=== PATIENT | female | born 2000 | race Caucasian/White ===

== ENCOUNTER 2021-11-22 21:42 | Observation (INO) ==
[2021-11-22] MEDS ORDERED: ONDANSETRON INJ 2 MG/ML 2 ML VIAL IV STA (22:04)
[2021-11-22] MEDS ORDERED: MoRPHine SULFATE 4 MG/ML 1 ML CARP\\VIAL IV STA (22:04)
--- NOTE | 2021-11-22 22:09 | Emergency Department Note ---
History of Present Illness General Chief complaint: Flank Pain Stated complaint: R SIDE PAIN,NAUSEA Time Seen by Provider: 11/22/21 21:53 History of Present Illness Maximum Pain Intensity: 8 This is a 21-year-old female that presents to the emergency department via private vehicle with complaints of "right side pain, nausea". The patient notes a history of G6PD and sickle cell trait. She states that last evening she developed some minor right mid back discomfort. No known trauma or injury. She states that throughout the day this has seemed to increase. Over the past 90 minutes it has significantly increased. She also notes some right upper quadrant abdominal pain. She has associated nausea. No vomiting. No fevers. No chest pain. No shortness of breath. This has never happened before. No dysuria, hematuria or increased urinary frequency. He rates her current disco mfort at the present time as an 8/10. Home Medications Medication Instructions Recorded Confirmed Type aripiprazole 2 mg tablet 2 mg PO DAILY 11/23/21 11/23/21 History bupropion HCl 100 mg tablet,12 hr 100 mg PO DAILY 11/23/21 11/23/21 History sustained-release ibuprofen 200 mg tablet (Advil) 400 mg PO Q6H PRN 11/23/21 11/23/21 History norgestimate 0.18 mg/0.215 mg/0.25 1 tab PO DAILY 11/23/21 11/23/21 History mg-ethinyl estradiol 25 mcg tablet (Rkf-[id number]-Oaonkm) propranolol 10 mg tablet 10 mg PO DAILY PRN 11/23/21 11/23/21 History tretinoin 0.05 % topical cream 1 applic TOPICAL UD PRN 11/23/21 11/23/21 History Allergies Allergy/AdvReac Type Severity Reaction Status Date / Time Meds that interfere with AdvReac Unknown Uncoded 11/23/21 00:01 G6PD defic meds that interfere, sickle AdvReac Unknown Uncoded 11/23/21 00:01 cell Past Med/Surg History Medical History (Updated 11/23/21 @ 07:29 by Amadou Sanchez PA-C) G6PD deficiency Surgical History No pertinent past surgical history Social History Smoking Status: Current every day smoker Tobacco Type: E-cigarettes / Vaping Second Hand Exposure: Yes; Do You Dip or Chew Tobacco: No; Tobacco Cessation Education Requested by Patient: No Hx Alcohol Use: Yes Alcohol type: hard liquor Hx Substance Use: Yes Last Used Substance: Hours (ago) Preferred Language: Albanian Pipe Coremaker Required: No Beliefs That Will Affect Care: Confucianism Confucianism Beliefs: Voodoo Current Living Situation: Alone Other Information That Helps Us Care for You: No Feels Safe at Home: Yes Safety Concerns: Feels Safe At This Time Assistive Devices: None Review of Systems A total of 10 systems reviewed and were otherwise negative Physical Exam Vital Signs Vital Signs - 24 hr 11/22/21 21:43 11/22/21 22:07 11/22/21 23:59 Temperature 36.3 C L Temperature Source Temporal Artery Scan Pulse Rate 87 Pulse Rate [Finger] 72 122 H Pulse Rhythm [Finger] Regular Regular Pulse Strength [Finger] Normal Normal Respiratory Rate 18 18 20 Respiratory Effort / Characteristics Non-Labored Non-Labored Spontaneous Respiratory Depth Normal Normal Normal Respiratory Pattern Blood Pressure 112/70 Blood Pressure [Right Arm] 118/63 126/91 Blood Pressure Mean 84 Blood Pressure Mean [Right Arm] 81 102 Blood Pressure Position [Right Arm] Sitting Pulse Oximetry 98 100 96 Oxygen Delivery Method Room Air Room Air Sepsis Recent Fever Within 48 Hours No Sepsis New/Unexplained Change in Mental Status N/A Sepsis Action Taken by Nursing No Action Required 11/23/21 02:00 11/23/21 03:03 Temperature Temperature Source Pulse Rate Pulse Rate [Finger] 68 94 H Pulse Rhythm [Finger] Regular Regular Pulse Strength [Finger] Normal Normal Respiratory Rate 20 20 Respiratory Effort / Characteristics Non-Labored Non-Labored Spontaneous Respiratory Depth Normal Normal Respiratory Pattern Regular Blood Pressure Blood Pressure [Right Arm] 118/76 121/62 Blood Pressure Mean Blood Pressure Mean [Right Arm] 90 81 Blood Pressure Position [Right Arm] Lying Lying Pulse Oximetry 98 100 Oxygen Delivery Method Room Air Room Air Sepsis Recent Fever Within 48 Hours Sepsis New/Unexplained Change in Mental Status Sepsis Action Taken by Nursing VITAL SIGNS - Vital signs and nursing notes were reviewed. Stable and afebrile. GENERAL - 21-year-old female appearing her stated age who is in no acute distress. Communicates well with provider and answers questions appropriately. SKIN - Without rashes. No meningeal or petechial rash. HEAD - NC/AT. EYES - Sclera anicteric. NECK - Neck with FROM. No nuchal rigidity. LUNGS - Chest wall symmetric without accessory muscle use, intercostals retractions, or central cyanosis. Normal vesicular breath sounds CTA B/L. No wheezes, rales, or rhonchi appreciated. CARDIAC - RRR with S1/S2. No murmur, rubs, or gallops appreciated. ABDOMEN - Abdominal contour normal without pulsations or visible masses. BS normoactive all four quadrants. There is right upper quadrant abdominal tenderness to palpation. There is also right right flank tenderness overlying the musculature. No palpable masses, hepatosplenomegaly, or ascites noted. EXTREMITIES - No clubbing or peripheral cyanosis. No pretibial edema present. +5/5 strength noted in UE/LE bilaterally. NEUROLOGIC - Cranial nerves II through XII grossly intact. PSYCH - A&O, and cooperates fully with examiner. Pt is very pleasant and interacts well with examiner. Course Administered Medications Hydrocodone Bitart/Acetaminophen (Hydrocodone/Acetamophen 5/325mg Tab) 1 tab PO Q6H PRN PRN Reason: Moderate Pain Stop: 12/07/21 04:02 Last Admin: 11/23/21 04:28 Dose: 1 tab Documented by: [id number] Hydromorphone HCl (Hydromorphone Inj 0.5 Mg/0.5 Ml Syr) 0.25 mg IV Q6H PRN PRN Reason: Severe Pain Stop: 12/07/21 04:04 Last Admin: 11/23/21 05:57 Dose: 0.25 mg Documented by: [id number] Heparin Sodium/Dextrose (Heparin Sodium/Dextrose) 25,000 units in 500 mls @ 23 mls/hr IV .[id number] [facility]; Protocol Stop: 12/23/21 04:29 Last Admin: 11/23/21 05:03 Dose: 1,150 units/hr, 23 mls/hr Documented by: [id number] Cosigned by: [id number] Discontinued Medications Heparin Sodium (Porcine) (Heparin Sod (Porcine) 1000 Unit/Ml) 5,000 units IV NOW ONE Stop: 11/23/21 04:21 Last Admin: 11/23/21 05:02 Dose: 5,000 units Documented by: [id number] Cosigned by: [id number] Heparin Sodium/Dextrose (Heparin Iv Adult Wt-Based Standard With Bolus Protocol) 1 ea IV Q15M [facility]; Protocol Stop: 11/23/21 05:59 Last Admin: 11/23/21 07:03 Dose: Not Given Documented by: [id number] Admin: 11/23/21 06:27 Dose: Not Given Documented by: [id number] Admin: 11/23/21 06:25 Dose: Not Given Documented by: [id number] Sodium Chloride (Nss 1000ml) 1,000 mls @ 500 mls/hr IV .Q2H EDEL Stop: 11/23/21 03:14 Last Infusion: 11/23/21 03:17 Dose: 0 mls/hr Documented by: [id number] Infusion: 11/23/21 03:17 Dose: 0 mls/hr Documented by: [id number] Admin: 11/23/21 01:22 Dose: 500 mls/hr Documented by: [id number] Ioversol (Optiray 320 100ml) 94 ml IV ONCE ONE Stop: 11/22/21 23:56 Last Admin: 11/22/21 23:56 Dose: 94 ml Documented by: [id number] Ioversol (Optiray 320 125ml) 120 ml IV ONCE ONE Stop: 11/23/21 02:02 Last Admin: 11/23/21 02:01 Dose: 120 ml Documented by: [id number] Morphine Sulfate (Morphine Sulfate 4 Mg/Ml 1 Ml Carp\\Vial) 4 mg IV NOW STA Stop: 11/22/21 22:05 Last Admin: 11/22/21 22:18 Dose: 4 mg Documented by: [id number] Ondansetron HCl (Ondansetron Inj 2 Mg/Ml 2 Ml Vial) 4 mg IV NOW STA Stop: 11/22/21 22:05 Last Admin: 11/22/21 22:18 Dose: 4 mg Documented by: [id number] Medical Decision Making Laboratory Data Result diagrams: 11/22/21 22:01 11/22/21 22:01 Lab Results 11/22/21 11/22/21 11/22/21 Range/Units 22:01 22:01 22:01 WBC 6.98 (4.8-10.8) K/uL RBC 4.56 (4.2-5.4) M/uL Hgb 12.8 (12.0-16.0) g/dL Hct 39.0 (37-47) % MCV 85.5 (80-100) fL MCH 28.1 (25-34) pg MCHC 32.8 (32-36) g/dL RDW Std Deviation 39.2 (36.4-46.3) fL RDW Coeff of Andrey 12.4 (11.5-14.5) % Plt Count 143 (130-400) K/uL MPV 12.1 H (7.4-10.4) fL Immature Gran % (Auto) 0.3 % Neut % (Auto) 50.6 % Lymph % (Auto) 38.5 % Faulkner % (Auto) 9.6 % Eos % (Auto) 0.7 % Baso % (Auto) 0.3 % Neut # (Auto) 3.53 (1.4-6.5) K/uL Lymph # (Auto) 2.69 (1.2-3.4) K/uL Faulkner # (Auto) 0.67 H (0.11-0.59) K/uL Eos # (Auto) 0.05 (0-0.5) K/uL Baso # (Auto) 0.02 (0-0.2) K/uL Immature Gran # (Auto) 0.02 (0.00-0.02) K/uL PT (9.0-12.0) Seconds INR (0.9-1.1) APTT (21.0-31.0) Seconds PTT Ratio D-Dimer (0-500) ug/L FEU Sodium 138 (136-145) mmol/L Potassium 3.7 (3.5-5.1) mmol/L Chloride 105 (98-107) mmol/L Carbon Dioxide 27 (21-32) mmol/L Anion Gap 6 (3-11) BUN 12 (6-23) mg/dl Creatinine 0.79 (0.6-1.2) mg/dl Est Cr Clr Drug Dosing 110.7 ml/min Est GFR ( Amer) 123.2 ml/min Est GFR (Non-Af Amer) 106.3 ml/min BUN/Creatinine Ratio 15.2 (10-20) Glucose 95 (70-99(Fasting)) mg/dl Calcium 9.0 (8.5-10.1) mg/dl Magnesium 1.8 (1.7-2.4) mg/dl Total Bilirubin 0.4 (0.2-1.0) mg/dl AST 15 (13-39) U/L ALT 13 (7-52) U/L Alkaline Phosphatase 45 (34-104) U/L Troponin I (0-0.04) ng/ml Total Protein 7.5 (6.0-8.3) gm/dl Albumin 4.0 (3.4-5.0) gm/dl Globulin 3.5 (2.5-4.0) gm/dl Albumin/Globulin Ratio 1.1 (0.9-2) Lipase 23 (11-82) U/L HCG, Qual Negative (Negative) Urine Color Urine Appearance (Clear) Urine pH (4.5-7.5) Ur Specific Pilot (1.000-1.030) Urine Protein (Negative) Urine Glucose (UA) (Negative) Urine Ketones (Negative) Urine Blood (Negative) Urine Nitrite (Negative) Urine Bilirubin (Negative) Urine Urobilinogen (Negative) Ur Leukocyte Esterase (Negative) Urine WBC (Auto) (0-5) /hpf Urine RBC (Auto) (0-4) /hpf U Hyaline Cast (Auto) (0-5) /lpf U Epithel Cells (Auto) (0-5) /lpf Urine Bacteria (Auto) (Negative) SARS-CoV-2, RNA, NAAT (NEGATIVE) 11/22/21 11/22/21 11/22/21 Range/Units 22:01 22:01 22:01 WBC (4.8-10.8) K/uL RBC (4.2-5.4) M/uL Hgb (12.0-16.0) g/dL Hct (37-47) % MCV (80-100) fL MCH (25-34) pg MCHC (32-36) g/dL RDW Std Deviation (36.4-46.3) fL RDW Coeff of Andrey (11.5-14.5) % Plt Count (130-400) K/uL MPV (7.4-10.4) fL Immature Gran % (Auto) % Neut % (Auto) % Lymph % (Auto) % Faulkner % (Auto) % Eos % (Auto) % Baso % (Auto) % Neut # (Auto) (1.4-6.5) K/uL Lymph # (Auto) (1.2-3.4) K/uL Faulkner # (Auto) (0.11-0.59) K/uL Eos # (Auto) (0-0.5) K/uL Baso # (Auto) (0-0.2) K/uL Immature Gran # (Auto) (0.00-0.02) K/uL PT 10.5 (9.0-12.0) Seconds INR 1.0 (0.9-1.1) APTT 24.9 (21.0-31.0) Seconds PTT Ratio 0.9 D-Dimer 650 H* (0-500) ug/L FEU Sodium (136-145) mmol/L Potassium (3.5-5.1) mmol/L Chloride (98-107) mmol/L Carbon Dioxide (21-32) mmol/L Anion Gap (3-11) BUN (6-23) mg/dl Creatinine (0.6-1.2) mg/dl Est Cr Clr Drug Dosing ml/min Est GFR ( Amer) ml/min Est GFR (Non-Af Amer) ml/min BUN/Creatinine Ratio (10-20) Glucose (70-99(Fasting)) mg/dl Calcium (8.5-10.1) mg/dl Magnesium (1.7-2.4) mg/dl Total Bilirubin (0.2-1.0) mg/dl AST (13-39) U/L ALT (7-52) U/L Alkaline Phosphatase (34-104) U/L Troponin I (0-0.04) ng/ml Total Protein (6.0-8.3) gm/dl Albumin (3.4-5.0) gm/dl Globulin (2.5-4.0) gm/dl Albumin/Globulin Ratio (0.9-2) Lipase (11-82) U/L HCG, Qual (Negative) Urine Color Yellow Urine Appearance Turbid A (Clear) Urine pH 5.0 (4.5-7.5) Ur Specific Pilot 1.025 (1.000-1.030) Urine Protein Negative (Negative) Urine Glucose (UA) Negative (Negative) Urine Ketones Negative (Negative) Urine Blood 1+ H (Negative) Urine Nitrite Negative (Negative) Urine Bilirubin Negative (Negative) Urine Urobilinogen Negative (Negative) Ur Leukocyte Esterase Trace H (Negative) Urine WBC (Auto) 1-5 (0-5) /hpf Urine RBC (Auto) 0-4 (0-4) /hpf U Hyaline Cast (Auto) 1-5 (0-5) /lpf U Epithel Cells (Auto) >30 H (0-5) /lpf Urine Bacteria (Auto) Negative (Negative) SARS-CoV-2, RNA, NAAT (NEGATIVE) 11/22/21 11/23/21 Range/Units 22:01 02:49 WBC (4.8-10.8) K/uL RBC (4.2-5.4) M/uL Hgb (12.0-16.0) g/dL Hct (37-47) % MCV (80-100) fL MCH (25-34) pg MCHC (32-36) g/dL RDW Std Deviation (36.4-46.3) fL RDW Coeff of Andrey (11.5-14.5) % Plt Count (130-400) K/uL MPV (7.4-10.4) fL Immature Gran % (Auto) % Neut % (Auto) % Lymph % (Auto) % Faulkner % (Auto) % Eos % (Auto) % Baso % (Auto) % Neut # (Auto) (1.4-6.5) K/uL Lymph # (Auto) (1.2-3.4) K/uL Faulkner # (Auto) (0.11-0.59) K/uL Eos # (Auto) (0-0.5) K/uL Baso # (Auto) (0-0.2) K/uL Immature Gran # (Auto) (0.00-0.02) K/uL PT (9.0-12.0) Seconds INR (0.9-1.1) APTT (21.0-31.0) Seconds PTT Ratio D-Dimer (0-500) ug/L FEU Sodium (136-145) mmol/L Potassium (3.5-5.1) mmol/L Chloride (98-107) mmol/L Carbon Dioxide (21-32) mmol/L Anion Gap (3-11) BUN (6-23) mg/dl Creatinine (0.6-1.2) mg/dl Est Cr Clr Drug Dosing ml/min Est GFR ( Amer) ml/min Est GFR (Non-Af Amer) ml/min BUN/Creatinine Ratio (10-20) Glucose (70-99(Fasting)) mg/dl Calcium (8.5-10.1) mg/dl Magnesium (1.7-2.4) mg/dl Total Bilirubin (0.2-1.0) mg/dl AST (13-39) U/L ALT (7-52) U/L Alkaline Phosphatase (34-104) U/L Troponin I < 0.03 (0-0.04) ng/ml Total Protein (6.0-8.3) gm/dl Albumin (3.4-5.0) gm/dl Globulin (2.5-4.0) gm/dl Albumin/Globulin Ratio (0.9-2) Lipase (11-82) U/L HCG, Qual (Negative) Urine Color Urine Appearance (Clear) Urine pH (4.5-7.5) Ur Specific Pilot (1.000-1.030) Urine Protein (Negative) Urine Glucose (UA) (Negative) Urine Ketones (Negative) Urine Blood (Negative) Urine Nitrite (Negative) Urine Bilirubin (Negative) Urine Urobilinogen (Negative) Ur Leukocyte Esterase (Negative) Urine WBC (Auto) (0-5) /hpf Urine RBC (Auto) (0-4) /hpf U Hyaline Cast (Auto) (0-5) /lpf U Epithel Cells (Auto) (0-5) /lpf Urine Bacteria (Auto) (Negative) SARS-CoV-2, RNA, NAAT NEGATIVE (NEGATIVE) Imaging Data Radiologist's Impression: Gallbladder Ultrasound 11/22/21 22:04 US gallbladder CLINICAL HISTORY: R flank and RUQ abd pain, nausea TECHNIQUE: Multiple real-time sonographic images of the right upper quadrant were obtained. Comparison: None available at the time of this dictation. FINDINGS: The liver is diffusely homogenous with normal contour and echogenicity. No focal mass lesions are seen. No intrahepatic ductal dilatation is seen. No gallstones or sludge are identified within the gallbladder. The gallbladder wall is not thickened. There is no pericholecystic fluid present. There is a fundal polyp measuring 0.2 cm. A sonographic Barros's sign was not elicited by the human resources executive. The common duct measures 0.2 cm in diameter at the level of the hepatic artery. The visualized portions of the pancreas appear normal. The right kidney shows normal echogenicity, cortical thickness and renal contour. The right kidney shows no evidence of hydronephrosis or mass. No ascites or free fluid is seen in Marr's pouch. IMPRESSION: No acute abnormalities and in particular no evidence of acute cholecystitis. A tiny gallbladder polyp does not require further follow-up. ACT 112: Negative or not required by law. Electronically signed by: Amandeep Franklin M.D. 11/22/2021 11:[address] ABDOMEN & PELVIS With Contrast: Comparison: Right upper quadrant ultrasound earlier same day Mild right basilar airspace disease, suspicious for pneumonia in the appropriate clinical setting. Also a 4-5 mm nodule in right lower lobe. Appendix is within normal limits as visualized. No evidence of acute appendicitis. No substantial free fluid. No free air. No bowel obstruction. Solid organs are unremarkable. Radiologist: Bhupinder Miles MD Study ready at 00:04 and initial results transmitted at 00:37 CTA CHEST: Pulmonary embolus within subsegmental branches of the posterior segment of the right lower lobe (series 2 image 38). Associated with this is adjacent airspace disease which may relate to developing infarctions. Infection also possible. No evidence of right heart strain. 6 mm right lower lobe pulmonary nodule. Fleischner Society Guidelines (MacMahon, et al. Radiology 2017; 284(1):228-43) suggest the following. For low-risk patients recommend follow-up chest CT at 6-12 months. If unchanged consider an additional follow-up CT at 18-24 months. For high-risk patients initial follow-up chest CT at 6-12 months and if unchanged, 18-24 months. Radiologist: Golden Torres MD Study ready at 02:08 and initial results transmitted at 02:29 MDM Narrative Patient was seen and evaluated as above in room C 11. Review was performed of nursing notes and vital signs. After obtaining a thorough history and physical examination the above work up was performed. Patient presents to us today with atraumatic right mid back/flank pain as well as right upper quadrant abdominal pain. She is nontoxic on examination. This is worse with movement and a deep breath. It is also reproducible on palpation to the right flank and right upper quadrant. No history of blood clots. The patient is not tachycardic. She is not hypoxic. There is no chest pain or shortness of breath. No dysuria. She has an overall benign abdominal exam. Options of care were discussed with the patient. IV access was established. Labs were drawn. She was medicated with IV morphine for pain and IV Zofran for nausea. Laboratory studies reveal no leukocytosis or concerning anemia. No emergent metabolic disturbance. Urinalysis does not suggest infection. hCG negative. Ultrasound was obtained of the right upper quadrant and was essentially negative. I did discuss further options in regard to work-up with the patient. At this time we will proceed with a CT scan of the abdomen and pelvis noting her reproducible right upper quadrant abdominal tenderness to palpation. Initially had lower suspicion for PE. CT scan abd/pelvis results as above. No acute findings in the abdomen or pelvis. They do comment on some right mild basilar airspace disease, suspicious for pneumonia in the appropriate clinical setting. There is also a nodule noted. I would note that the patient does not have any cough or fever. Her white count is normal. I do not suspect pneumonia. For this abnormal finding on the CT scan I did add a D-dimer to further evaluate as I do not believe that proceeding straight to a CTA of the chest is indicated as this would be a repeat contrast bolus. This unfortunately was positive and therefore I did discuss benefit versus risk of CT scan of the chest with the patient. I also discussed this with the attending physician. I then ordered IV hydration as the patient will have to be recontrasted. It is felt that the benefit outweighs the risk. Patient amenable to proceeding. CT scan of the chest as above. The patient does have a PE. This certainly could correlate with the patient's location of discomfort. I suspect that this is the cause of her pain. Further evaluation and management are indicated. Case discussed with the hospitalist. They will anticoagulate the patient. Please refer to further documentation regarding her stay. Patient amenable to plan of care. Case was discussed with the attending physician. EKG was reviewed by myself and found to be Normal Sinus Rhythm at a rate of 75 beats per minute and per my interpretation reveals no ST elevation. QTc 453. QRS 82. No previous for comparison. GCS: 15 In the evaluation and treatment of this patient the following differential diagnoses were entertained: UTI, pyelonephritis, musculoskeletal strain, acute cholecystitis, gastritis, GERD, pneumonia, PE, among others. Impression & Plan Pulmonary embolism, Acute right-sided back pain Discharge Plan Visit Data Chief Complaint: Flank Pain Stated Complaint: R SIDE PAIN,NAUSEA ED Provider: Yordan Luna ED Midlevel Provider: Amadou Sanchez Discharge Problem: Pulmonary embolism, Acute right-sided back pain Patient Disposition: Admitted As Inpatient Condition: Good Discharge Instructions Interventions: ED Discharge Assessment Last Done: 11/23/21 05:36
[2021-11-22 22:14] LABS: Basophils # (auto) 0.02 K/uL (0-0.2); Basophils % (auto) 0.3 %; Eosinophils # (auto) 0.05 K/uL (0-0.5); Eosinophils % (auto) 0.7 %; Hemoglobin 12.8 g/dL (12.0-16.0); Immature Granulocytes # (auto) 0.02 K/uL (0.00-0.02); Immature Granulocytes % (auto) 0.3 %; Lymphocytes # (auto) 2.69 K/uL (1.2-3.4); Lymphocytes % (auto) 38.5 %; Mean Corpuscular Hemoglobin 28.1 pg (25-34); Mean Corpuscular Hgb Conc 32.8 g/dL (32-36); Mean Corpuscular Volume 85.5 fL (80-100); Mean Platelet Volume 12.1 fL (7.4-10.4); Monocytes # (auto) 0.67 K/uL (0.11-0.59); Monocytes % (auto) 9.6 %; Neutrophils # (auto) 3.53 K/uL (1.4-6.5); Neutrophils % (auto) 50.6 %; Platelet Count 143 K/uL (130-400); RDW Coefficient of Variation 12.4 % (11.5-14.5); RDW Standard Deviation 39.2 fL (36.4-46.3); Red Blood Count 4.56 M/uL (4.2-5.4); White Blood Count 6.98 K/uL (4.8-10.8)
[2021-11-22 22:25] LABS: Appearance Urine Turbid (Clear); Bacteria Urine Automated Negative (Negative); Bilirubin Urine Negative (Negative); Blood Urine 1+ (Negative); Color Urine Yellow; Epithelial Cell Urine Auto >30 /lpf (0-5); Glucose Urine UA Negative (Negative); Ketones Urine Negative (Negative); Leukocyte Esterase Urine Trace (Negative); Nitrite Urine Negative (Negative); Protein Urine Negative (Negative); RBC Urine Automated 0-4 /hpf (0-4); Specific Gravity Urine 1.025 (1.000-1.030); Urobilinogen Urine Negative (Negative)
[2021-11-22 22:33] LABS: Albumin Globulin Ratio 1.1 (0.9-2); BUN Creatinine Ratio 15.2 (10-20); Bilirubin,Total 0.4 mg/dl (0.2-1.0); Creatinine Clr Calc Pharmacy 110.7 ml/min; Est GFR (African American) 123.2 ml/min; Est GFR (Non-African American) 106.3 ml/min; Globulin 3.5 gm/dl (2.5-4.0); Magnesium 1.8 mg/dl (1.7-2.4); Potassium 3.7 mmol/L (3.5-5.1); Total Protein 7.5 gm/dl (6.0-8.3)
[2021-11-22 22:35] LABS: Pregnancy Test, Serum Negative (Negative)
--- NOTE | 2021-11-22 23:04 | Ultrasound Report ---
US gallbladder CLINICAL HISTORY: R flank and RUQ abd pain, nausea TECHNIQUE: Multiple real-time sonographic images of the right upper quadrant were obtained. Comparison: None available at the time of this dictation. FINDINGS: The liver is diffusely homogenous with normal contour and echogenicity. No focal mass lesions are se en. No intrahepatic ductal dilatation is seen. No gallstones or sludge are identified within the gallbladder. The gallbladder wall is not thickened. There is no pericholecystic fluid present. There is a fundal polyp measuring 0.2 cm. A sonographic Barros's sign was not elicited by the broker associate. The common duct measures 0.2 cm in diameter at the level of the hepatic artery. The visualized por tions of the pancreas appear normal. The right kidney shows normal echogenicity, cortical thickness and renal contour. The right kidney sh ows no evidence of hydronephrosis or mass. No ascites or free fluid is seen in Marr's pouch. IMPRESSION: No acute abnormalities and in particular no evidence of acute cholecystitis. A tiny gallbladder polyp does not require further follow-up. ACT 112: Negative or not required by law. Electronically signed by: Amandeep Franklin M.D. 11/22/2021 11:03 PM
[2021-11-22] MEDS ORDERED: OPTIRAY 320 100ml IV ONE (23:55)
[2021-11-23] MEDS ORDERED: SODIUM CHLORIDE 0.9% 1000ML 1,000 ML IV SCH (01:15)
[2021-11-23 01:16] LABS: D Dimer 650 ug/L FEU (0-500)
[2021-11-23] MEDS ORDERED: OPTIRAY 320 125ml IV ONE (02:01)
[2021-11-23 02:19] LABS: Partial Thromboplastin Ratio 0.9; Partial Thromboplastin Time 24.9 Seconds (21.0-31.0); Prothrombin Time 10.5 Seconds (9.0-12.0)
--- NOTE | 2021-11-23 03:37 | History & Physical Report ---
Date of Service November 23, 2021 Assessment & Plan (1) Pulmonary embolism: Plan: Jahaira Peng is a 21yo female with PMHx significant for G6PD deficiency, sickle cell trait and Bipolar II disorder who presented to [facility] ED on 11/23 due to severe pleuritic right-sided rib pain x1 day that intensified ~2 hours before arrival in the ED - found to have RLL PE on imaging. RLL Pulmonary Embolism Pleuritic right rib pain, tachycardic on arrival, CTA chest showing PE within subsegmental branches of posterior segment of RLL with adjacent airspace disease representing likely developing infarctions. 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 - ordered hypercoagulability panel - started Heparin gtt with bolus, AFTER labs drawn - defer to day team for choice of DOAC on discharge - counseled on stopping OCP at this time - graduated PRN pain regimen: Tylenol/Morrison/Dilaudid Bipolar II Disorder Patient just started Wellbutrin ~1 week ago - do not suspect that this contributed to above. - continue home Abilify/Wellbutrin and PRN Propranolol FEN/GI: regular diet DVT Prophylaxis: Heparin gtt Code Status: full code Disposition: med/tele (2) G6PD deficiency: (3) Sickle cell trait: (4) Bipolar II disorder: History of Present Illness Chief Complaint: flank pain Primary Care Provider: Riccardo Mayen DO Jahaira Peng is a 21yo female with PMHx significant for G6PD deficiency, sickle cell trait and Bipolar II disorder who presented to [facility] ED on 11/23 due to severe pleuritic right-sided rib pain x1 day that intensified ~2 hours before arrival in the ED. Also reports associated RUQ abdominal pain and nausea, without vomiting or fever/chills. Denies chest pain or palpitations. Denies shortness of breath. Does report that MGF and maternal aunt both have issues with repeat clots although she is not sure if they had hypercoagulability work- up. Patient has been taking OCP for 3-4 months now. Denies recent transfusion associated with G6PD or sickle cell trait although she has been to the ED several times before for pain crises. Denies recent car/plane travel. No h/o malignancy. In the ED the patient was tachycardic to 122bpm; otherwise VS stable and WNL on room air. Laboratory evaluation significant for d-dimer 650. Troponin negative and CBC/CMP WNL. UA with turbid urine, 1+ blood, trace LE, >30 epithelial cells. COVID negative. CTA chest showing PE within subsegmental branches of posterior segment of RLL with adjacent airspace disease representing likely developing infarctions, without evidence of right heart strain. Also showed incidental 6mm RLL pulmonary nodule - requires CT chest f/u at 6-12 months. Gallbladder US without abnormalities. CT A/P showing mild right basilar airspace disease. Patient received Zofran 4mg IV x1, Morphine 4mg IV x1 and NSS 1L bolus. Allergies Allergy/AdvReac Type Severity Reaction Status Date / Time Meds that interfere with AdvReac Unknown Uncoded 11/23/21 00:01 G6PD defic meds that interfere, sickle AdvReac Unknown Uncoded 11/23/21 00:01 cell Home Medications Medication Instructions Recorded Confirmed Type acetaminophen 500 mg tablet 1,000 mg PO TID 14 Days #84 tab 11/23/21 Rx aripiprazole 2 mg tablet 2 mg PO DAILY 11/23/21 11/23/21 History bupropion HCl 100 mg tablet,12 hr 100 mg PO DAILY 11/23/21 11/23/21 History sustained-release oxycodone 5 mg tablet 5 mg PO Q4H PRN #20 tab 11/23/21 Rx propranolol 10 mg tablet 10 mg PO DAILY PRN 11/23/21 11/23/21 History rivaroxaban 15 mg (42)-20 mg (9) See Rx Instructions .ROUTE 11/23/21 Rx tablets in a starter pack (Xarelto .COMPLEX #51 ea DVT-PE Treat 30d Start) tretinoin 0.05 % topical cream 1 applic TOPICAL UD PRN 11/23/21 11/23/21 History Past Med/Surg History Medical History (Updated 11/23/21 @ 07:29 by Amadou Sanchez PA-C) G6PD deficiency Surgical History No pertinent past surgical history Social History Smoking Status: Current every day smoker Tobacco Type: E-cigarettes / Vaping Second Hand Exposure: Yes; Do You Dip or Chew Tobacco: No; Tobacco Cessation Education Requested by Patient: No Hx Alcohol Use: Yes Alcohol type: hard liquor Hx Substance Use: Yes Last Used Substance: Hours (ago) Preferred Language: Occitan Telemarketer Required: No Beliefs That Will Affect Care: Alevism Alevism Beliefs: Shinto Current Living Situation: Alone Other Information That Helps Us Care for You: No Feels Safe at Home: Yes Safety Concerns: Feels Safe At This Time Assistive Devices: None Review of Systems Review of Systems: All systems reviewed & are unremarkable except as noted in HPI & below Physical Exam Physical Exam: General: A&Ox3. NAD. Cooperative. HEENT: Atraumatic, normocephalic. Pulm: Diminished lung sounds in right base but no crackles/wheezes. Symmetrical chest rise. No increase work of breathing. No respiratory distress. Cardiac: RRR, -mrg. Radial pulses intact and symmetrical. No LE edema. Chest: right-sided rib pain is not reproducible on palpation of ribs Abdominal: soft, non-tender, non-distended, BS x 4 Results & Data Results & Data ([facility]) Vital Signs (Past 12 Hours) Vital Signs Temp Pulse Pulse Resp BP BP Pulse Ox 11/23/21 03:03 94 H 20 121/62 100 11/23/21 02:00 68 20 118/76 98 11/22/21 23:59 122 H 20 126/91 96 11/22/21 22:07 72 18 118/63 100 11/22/21 21:43 36.3 C L 87 18 112/70 98 Supervising Physician Co-Signing Physician Notes Attending addendum: I have physically seen this patient, have supervised the medical residents activities, and agree with the H&P unless as otherwise noted. Assessment and Plan: Pulmonary embolism/pulmonary infarcts- Order hypercoagulability panel Heparin drip with bolus per protocol, to convert to DOAC's tomorrow Stop OCPs as directed Pain control as noted: Tylenol/Morrison/Dilaudid Bipolar 2 disorder- continue Abilify and Wellbutrin Remaining orders and notations as noted Resident Activity Tracking Resident Involvement: Resident Care Provided Care Provided: Adult Hospital Medicine
[2021-11-23] MEDS ORDERED: HYDROCODONE/ACETAMOPHEN 5/325MG TAB PO PRN (04:03)
[2021-11-23] MEDS ORDERED: ACETAMINOPHEN 325 MG TAB PO PRN (04:05)
[2021-11-23] MEDS ORDERED: HEPARIN SOD (PORCINE) 1000 UNIT/ML IV ONE (04:20)
[2021-11-23] MEDS: HYDROCODONE/ACETAMOPHEN 5/325MG TAB PO PRN ×2 (04:28→11:44)
[2021-11-23] MEDS ORDERED: HEPARIN SODIUM/DEXTROSE 25,000 UNITS/500 ML BAG IV SCH (04:30)
[2021-11-23] MEDS ORDERED: PROPRANOLOL HCL 10 MG TAB PO PRN (05:30)
[2021-11-23] MEDS: HYDROmorphone INJ 0.5 MG/0.5 ML SYR IV PRN ×2 (05:57→14:49)
[2021-11-23] MEDS: Heparin IV Adult Wt-Based Standard WITH Bolus Protocol IV SCH ×4 (06:25→07:04)
[2021-11-23] MEDS ORDERED: KETOROLAC TROMETHAMINE 15 MG/ML VIAL IV STA (08:11)
--- NOTE | 2021-11-23 08:37 | CT Scan Report ---
CT angio chest PE protocol CLINICAL HISTORY: R sided flank pain, elevated d dimer . Difficulty breathing COMPARISON STUDY: No previous studies for comparison. CT DOSE: 317.00 mGy.cm TECHNIQUE: CT Angio of the chest was performed.followed by image post processing with coronal, and s agittal MIP reformats. Contrast Volume: Optiray 320, 120 ml FINDINGS: Vasculature: There are very small perfusion defects seen within subsegmental branches of right lower lobe pulmonary arteries as noted on images 89 through 99 of 253. No other perfusion defects are seen bilaterally. Airway: The airway is clear. No endobronchial lesion is identified. Lungs: There are atelectatic changes present at the right lung base associated with the pulmonary emb luke. The remainder the lungs are clear of alveolar opacities and air bronchograms. There is also a 6 mm noncalcified pulmonary nodule within the right lower lobe as seen on image 100. This most likely represents a noncalcified granuloma. However, follow-up is recommended via Fleischne r criteria. Pleura: There is no evidence for pleural effusion. There is no evidence for pneumothorax. Mediastinum: There is no evidence for pathologic adenopathy. The heart size is within normal limits. The thoracic aorta is within normal limits. There is no evidence for pericardial effusion. Upper abdomen:The adrenal glands are normal bilaterally. Osseous structures: There is no acute osseous pathology. Impression: 1. Positive for pulmonary emboli in small subsegmental branches of the right lower lobe pulmonary art eries. 2. Adjacent right lower lobe atelectasis at the right lung base. 3. 6 mm noncalcified pulmonary nodule within the right lower lobe, most likely a noncalcified granulo ma. However, follow-up is recommended via Fleischner criteria. Please refer to below summary of Fleischner criteria recommendations for follow-up of incidental CT n odules (Jacques Rome, Guidelines for management of small pulmonary nodules detected on CT scans: A sta tement from the Fleischner Society, Radiology 237: [phone].) SOLID NODULES Solitary nodule size: <6 mm * low risk patients: no follow-up needed * high risk patients: optional CT at 12 months Solitary nodule size: 6-8 mm * low risk patients: follow-up at 6-12 months, then consider further follow-up at 18-24 months * high risk patients: initial follow-up CT at 6-12 months and then at 18-24 months if no change Solitary nodule size: >8 mm * either low or high risk patients - consider follow-up CT at 3 months, and/or CT-PET, and/or biopsy Multiple nodules size: <6 mm * low risk patients: no routine follow-up * high risk patients: optional CT at 12 months Multiple nodules size: 6-8 mm * low risk patients: follow-up at 3-6 months, then consider further follow-up at 18-24 months * high risk patients: follow-up at 3-6 months, then at 18-24 months if no change Multiple nodules size: >8 mm * low risk patients: follow-up at 3-6 months, then consider further follow-up at 18-24 months * high risk patients: follow-up at 3-6 months, then at 18-24 months if no change Note: newly detected indeterminate nodule in persons 35 years of age or older. * low risk patients: minimal or absent history of smoking and/or other known risk factors * high risk patients: history of smoking or of other known risk factors (e.g. first degree relative with lung cancer, or exposure to asbestos, radon, uranium) * if a nodule up to 8 mm is partly solid or is ground glass further follow-up is required after 24 m onths to exclude possible slow growing adenocarcinoma (KRISTIE) SUBSOLID NODULES Solitary pure ground-glass nodule * nodule size <6 mm - no CT follow-up required * nodule size >=6 mm - follow-up CT at 6-12 months, then every 2 years until 5 years Solitary part-solid nodule * nodule size <6 mm - no CT follow-up required * nodule size >=6 mm - follow-up CT at 3-6 months. If unchanged, and solid component remains <6 mm, then annual follow-up for 5 years Multiple subsolid nodules * nodule size <6 mm - follow-up CT at 3-6 months, consider further follow-up at 2 and 4 years if sta ble * nodule size >=6 mm - follow-up CT at 3-6 months, subsequent management based on the most suspiciou s nodule(s) ACT 112: Negative or not required by law. Electronically signed by: Beltran Devine M.D. 11/23/2021 8:35 AM
--- NOTE | 2021-11-23 08:41 | CT Scan Report ---
CT abd pelvis IV con only CLINICAL HISTORY: R flank,ruq abd pain, nausea COMPARISON STUDY: No previous studies for comparison. CT DOSE: 466.20 mGy.cm TECHNIQUE: Standard CT of the Abdomen and Pelvis was performed with IV contrast. A dose lowering everett hnique was utilized adhering to the principles of ALARA. Contrast Volume: Optiray 320, 95 ml. The patient did not receive oral contrast. FINDINGS: Lung base: The lung bases are clear. Abdominal cavity: There is no evidence for abdominal mass, adenopathy or ascites. Liver: There is homogeneous attenuation of the liver parenchyma. There is no evidence for enhancing m ass lesion. Spleen: There is homogeneous attenuation of the splenic parenchyma. There is no enhancing mass lesion . Pancreas: There is homogeneous attenuation of the pancreatic parenchyma. There is no evidence for mas s lesion or peripancreatic fluid collection. Gall Bladder: The gallbladder is well distended with no evidence for intraluminal calculi, wall thick ening or pericholecystic edema. Adrenal glands: The adrenal glands are normal in size and attenuation. There is no evidence for enhan cing mass lesion. Kidneys: There is homogeneous attenuation of the renal parenchyma bilaterally. There is no evidence f or renal calculus or hydronephrosis. There is no evidence for enhancing mass. Bowel: There are fluid-filled loops of small bowel seen throughout the abdomen and pelvis without andrew dence for disproportionate dilatation or obstruction. These findings can be seen with an ileus versus gastroenteritis. There is no evidence for mass lesion. There are no inflammatory changes present. Th ere is no evidence for free air. There is a normal appendix in the right lower quadrant. Bladder: The bladder is within normal limits with no evidence for focal mass, calculus or diverticulu m. : There is no evidence for pelvic mass or adenopathy. There is no evidence for pelvic ascites. Foll icular cystic changes are present involving the ovaries bilaterally. Vasculature: There is no evidence for aneurysmal dilatation of the abdominal aorta. Osseous structures: There is no acute osseous pathology. IMPRESSION: 1. Fluid-filled loops of small bowel throughout the abdomen and pelvis which can be seen with an ileu s versus gastroenteritis. 2. Otherwise, no acute intra-abdominal or pelvic abnormality. ACT 112: Negative or not required by law. Electronically signed by: Beltran Devine M.D. 11/23/2021 8:40 AM
[2021-11-23] MEDS ORDERED: buPROPion SR 100 MG TABCR PO SCH (09:00)
[2021-11-23] MEDS ORDERED: ARIPIprazole 1 MG/ML ORAL SOLN 150 ML BTL PO SCH (09:00)
--- NOTE | 2021-11-23 13:13 | Ultrasound Report ---
US venous doppler LE BI CLINICAL HISTORY: bilateral calf pain with swelling r/o DVT COMPARISON: None available at the time of this dictation. TECHNIQUE: Bilateral lower extremity real-time compression venous ultrasound with Color Doppler imagi ng. Utilizing real-time ultrasonic imaging multiple real time high-resolution ultrasonic images with comp ression and noncompression maneuvers of the deep venous system in addition to color doppler imaging w ere performed from the common femoral vein through the proximal calf veins. FINDINGS: Currently there is normal compressibility of the deep venous system from the common femoral vein thro ugh the proximal calf veins. No current evidence of acute thrombosis is identified. Impression: No evidence of deep venous thrombus. ACT 112: Negative or not required by law. Electronically signed by: Beltran Devine M.D. 11/23/2021 1:12 PM
[2021-11-23] MEDS ORDERED: MoRPHine SULFATE 4 MG/ML 1 ML CARP\\VIAL IV STA (16:44)
[2021-11-23] MEDS ORDERED: RIVAROXABAN 15 MG TAB PO ONE (17:00)
--- NOTE | 2021-11-23 17:32 | Discharge Summary ---
Date of Service November 23, 2021 Admission HPI Per Admitting Provider Jahaira Peng is a 21yo female with PMHx significant for G6PD deficiency, sickle cell trait and Bipolar II disorder who presented to [facility] ED on 11/23 due to severe pleuritic right-sided rib pain x1 day that intensified ~2 hours before arrival in the ED. Also reports associated RUQ abdominal pain and nausea, without vomiting or fever/chills. Denies chest pain or palpitations. Denies shortness of breath. Does report that MGF and maternal aunt both have issues with repeat clots although she is not sure if they had hypercoagulability work- up. Patient has been taking OCP for 3-4 months now. Denies recent transfusion associated with G6PD or sickle cell trait although she has been to the ED several times before for pain crises. Denies recent car/plane travel. No h/o malignancy. In the ED the patient was tachycardic to 122bpm; otherwise VS stable and WNL on room air. Laboratory evaluation significant for d-dimer 650. Troponin negative and CBC/CMP WNL. UA with turbid urine, 1+ blood, trace LE, >30 epithelial cells. COVID negative. CTA chest showing PE within subsegmental branches of posterior segment of RLL with adjacent airspace disease representing likely developing infarctions, without evidence of right heart strain. Also showed incidental 6mm RLL pulmonary nodule - requires CT chest f/u at 6-12 months. Gallbladder US without abnormalities. CT A/P showing mild right basilar airspace disease. Patient received Zofran 4mg IV x1, Morphine 4mg IV x1 and NSS 1L bolus. Discharge Data Allergies Allergy/AdvReac Type Severity Reaction Status Date / Time Meds that interfere with AdvReac Unknown Uncoded 11/23/21 00:01 G6PD defic meds that interfere, sickle AdvReac Unknown Uncoded 11/23/21 00:01 cell Consultations 11/23/21 02:43 ED Decision to Admit Stat Ordered Studies 11/22/21 22:04 US gallbladder Stat 11/22/21 23:15 CT abd pelvis IV con only Urgent 11/23/21 01:33 CT angio chest PE protocol Urgent 11/23/21 11:54 US venous doppler LE BI Urgent Hospital Course (1) Pulmonary embolism: Jahaira Peng is a 21yo female with PMHx significant for G6PD deficiency, sickle cell trait and Bipolar II disorder who presented to [facility] ED on 11/23 due to severe pleuritic right-sided rib pain x1 day that intensified ~2 hours before arrival in the ED - found to have RLL PE on imaging. RLL Pulmonary Embolism Pleuritic right rib pain, tachycardic on arrival, CTA chest showing PE within subsegmental branches of posterior segment of RLL with adjacent airspace disease representing likely developing infarctions. 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 - ordered hypercoagulability panel - started Heparin gtt with bolus, AFTER labs drawn - defer to day team for choice of DOAC on discharge - counseled on stopping OCP at this time - graduated PRN pain regimen: Tylenol/Shushan/Dilaudid Bipolar II Disorder Patient just started Wellbutrin ~1 week ago - do not suspect that this contributed to above. - continue home Abilify/Wellbutrin and PRN Propranolol FEN/GI: regular diet DVT Prophylaxis: Heparin gtt Code Status: full code Disposition: med/tele (2) G6PD deficiency: (3) Sickle cell trait: (4) Bipolar II disorder: Discharge Plan Discharge Items Patient Disposition: Home - Self-Care Reason For Visit: RLL PE Discharge Diagnosis: Pulmonary emboli Condition on Discharge: Good Activity: Resume your previous activity Non-emergency contact: Primary Care Provider Call non-emergency contact if: you have any medication questions and your symptoms worsen Follow-up/Referrals: Riccardo Mayen DO [Primary Care Provider] - Diet: Regular Addtl Attending Provider Instructions: You were observed at [facility] from November 22-2021 due to right-sided chest pain. You were diagnosed with right-sided lung pulmonary emboli. This was treated with intravenous heparin and switched to Xarelto on discharged. Recommend continuing Xarelto for 6 months. Hypercoagulable panel was sent and can be followed up by your primary care provider however suspect you developed this due to a combination of smoking, estrogen (in your combined oral contraceptive pill) and sickle cell trait. Recommend discontinuing s moking/vaping and discontinue your combined oral contraceptive pill. Ultrasound venous Doppler did not show any deep vein thrombosis of your lower extremities. Recommend taking acetaminophen 1 g 3 times daily for pain, with additional oxycodone as needed for breakthrough pain. Initial 1 month prescription of Xarelto has been sent to your pharmacy. Recommend avoiding nonsteroidal anti-inflammatory medications while taking Xarelto. Please contact your primary care physician if you have any black or bright red blood in stool, or return to the emergency room if symptomatic with chest pain, shortness of breath or dizziness. Consider anticoagulation during long-haul flights in the future. Pending Studies at Discharge: No Stand-Alone Forms: [facility], Smoking Cessation Medications and DC Order Prescriptions: New oxycodone 5 mg tablet 5 mg PO Q4H PRN (Reason: pain) Qty: 20 RF: 0 acetaminophen 500 mg tablet 1,000 mg PO TID 14 Days Qty: 84 RF: 0 Xarelto DVT-PE Treat 30d Start 15 mg (42)- 20 mg (9) tablets,dose pack See Rx Instructions .ROUTE .COMPLEX Qty: 51 RF: 0 Continued tretinoin 0.05 % cream 1 applic TOPICAL UD PRN (Reason: ..) RF: 0 bupropion HCl 100 mg tablet sustained-release 12 hr 100 mg PO DAILY RF: 0 propranolol 10 mg tablet 10 mg PO DAILY PRN (Reason: Anxiety) RF: 0 aripiprazole 2 mg tablet 2 mg PO DAILY RF: 0 Discontinued ibuprofen [Advil] 200 mg Tablet 400 mg PO Q6H PRN (Reason: Pain) RF: 0 norgestimate-ethinyl estradiol [Jbe-Fg-Yonnsp] 0.18/0.215/0.25 mg-25 mcg tablet 1 tab PO DAILY RF: 0 Discharge Orders: Discharge Order (Routine); Ordered 11/23/21 Ordered By: Adrien Cordova/Other Patient Handouts: Xarelto 30 Day Starter Pack Admission Data Admit Date/Time: 11/23/21 04:13 Attending Provider: Adrien Salamanca Admit Provider: Bhupinder Meek Primary Care Provider: Riccardo Mayen Other Providers: Maco Martin Coding Diagnoses Pulmonary embolism I26.99 G6PD deficiency D55.0 Sickle cell trait D57.3 Bipolar II disorder F31.81
[2021-11-23 17:54] LABS: Partial Thromboplastin Ratio 1.7
[2021-11-23 18:00] LABS: Partial Thromboplastin Time 47.3 Seconds (21.0-31.0)
--- NOTE | 2021-11-23 22:35 | Billing Data ---
Date of Service November 23, 2021 Coding Level of Care Code INT OBSERVATION CARE 70M LVL 3
--- NOTE | 2021-11-24 06:48 | Electrocardiogram Report ---
Test Reason : Blood Pressure : / mmHG Vent. Rate : 075 BPM Atrial Rate : 075 BPM P-R Int : 192 ms QRS Dur : 082 ms QT Int : 406 ms P-R-T Axes : 062 043 037 degrees QTc Int : 453 ms Normal sinus rhythm with sinus arrhythmia Normal ECG No previous ECGs available Confirmed by Arturo Franco ([id number]) on 11/24/2021 6:47:33 AM Referred By: REFERRED SELF Confirmed By:Arturo Franco
== END 2021-11-23 18:40 | disposition home or self-care (01) ==
LOC: ED 21:42 → 2W 21:42 → SUATTDRO 11-23 04:13 → 2W 11-23 05:36